=== PATIENT | male | born 1955 | race Two or more races ===

== ENCOUNTER 2019-02-18 08:47 | Emergency (ER) | payer SELFPAY ==
[~2019-02-18] VITALS: Ht 175.3 cm; Wt 95.3 kg
[2019-02-18 08:52] VITALS: BP 172/88
[2019-02-18] MEDS ORDERED: LIDOCAINE 1% HCL (LOCAL ANESTH.) INJ 20ML MDV IJ ONE (09:00)
[2019-02-18] MEDS ORDERED: TETANUS-DIPTH-ACEL PERTUSSIS 0.5ML SYRG IM ONE (09:45)
== END 2019-02-18 09:57 | disposition home or self-care (01) ==
LOC: ER 08:47
DX: S61.012A Laceration without foreign body of left thumb without damage to nail, initial encounter (principal); W26.9XXA Contact with unspecified sharp object(s), initial encounter; Y93.89 Activity, other specified; Y99.8 Other external cause status; Y92.89 Other specified places as the place of occurrence of the external cause
CPT/HCPCS: 12004; 73130